=== PATIENT | female | born 1975 | race African-American/Black ===

== ENCOUNTER 2017-03-24 10:50 | Emergency (ER) | payer MEDICAID ==
[~2017-03-24] VITALS: Ht 160 cm; Wt 70.0 kg
[2017-03-24 12:55] VITALS: BP 132/69
== END 2017-03-24 13:59 | disposition left against medical advice (07) ==
LOC: ER 10:50
DX: L08.9 Local infection of the skin and subcutaneous tissue, unspecified (principal); Z53.21 Procedure and treatment not carried out due to patient leaving prior to being seen by health care provider